=== PATIENT | female | born 1985 | race Caucasian/White ===

== ENCOUNTER 2023-01-17 11:55 | Emergency (ER) | payer OTHER ==
[~2023-01-17] VITALS: Ht 172.7 cm; Wt 81.6 kg
[2023-01-17] MEDS ORDERED: PROGESTERONE200 MG PO (12:28)
== END 2023-01-17 21:29 | disposition home or self-care (01) ==
LOC: ER 11:55
DX: S20.212A Contusion of left front wall of thorax, initial encounter (principal); W19.XXXA Unspecified fall, initial encounter; Y93.9 Activity, unspecified; Y92.9 Unspecified place or not applicable; Y99.9 Unspecified external cause status